=== PATIENT | male | born 1955 | race African-American/Black ===

== ENCOUNTER → 2017-03-24 | Outpatient (CLI) | payer OTHER ==
[2017-03-24 10:30] LABS: ANION GAP 12 (6-14); BLOOD UREA NITROGEN 30 mg/dL (8-26); CARBON DIOXIDE 27 mmol/L (21-32); CHLORIDE 102 mmol/L (98-107); CHOLESTEROL 107 mg/dL (0-200); CREATININE 1.8 mg/dL (0.7-1.3); GFR 46.5; GLUCOSE 91 mg/dL (70-99); HDLC 30 mg/dL (40-60); LDLC 47 mg/dL (0-100); NON-HDL CHOLESTEROL 77 mg/dL (0-129); POTASSIUM 4.1 mmol/L (3.5-5.1); SODIUM 141 mmol/L (136-145); TRIGLYCERIDES 150 mg/dL (0-150); VLDLC 30 mg/dL (0-40)
[2017-03-24 10:33] LABS: CHOLESTEROL/HDL RATIO 3.6
[2017-03-24 10:37] LABS: NT-PRO BNP 16 pg/mL (0-124)
[2017-03-25 04:21] LABS: HEMOGLOBIN A1C 5.4 % (4.8-5.6)
== END | disposition home or self-care (01) ==
LOC: LAB 08:11
DX: I10 Essential (primary) hypertension (principal); E78.5 Hyperlipidemia, unspecified; N28.9 Disorder of kidney and ureter, unspecified; E88.81 Metabolic syndrome and other insulin resistance; R79.89 Other specified abnormal findings of blood chemistry
CPT/HCPCS: 36415; 80048; 80061; 83036; 83700; 83880; 86141